=== PATIENT | female | born 1980 | race Caucasian/White ===

== ENCOUNTER 2016-03-20 14:04 | Emergency (ER) | payer BC ==
[2016-03-20 14:57] VITALS: RESP 16; TEMP 98.6
[2016-03-20] MEDS ORDERED: NS 1,000 ML IV ONE (15:22)
--- NOTE | 2016-03-20 15:25 | UCPHY ---
H & P Patient Type: New Chief Complaint Nursing Narrative: Pt. with sharp pain(x1 day) upon lying down, left breast. Slight sob(10 days. ),last noc achey left rib. states hx of A-fib but has not had s/s's of a-fib.Denies fever/chills or cough. Time Seen by Provider: 03/20/16 15:22 HPI/ROS: CHIEF COMPLAINT: CHEST PAIN HISTORY OF PRESENT ILLNESS: The patient is a 35-year-old female who comes to the Urgent Care complaining of left-sided pleuritic chest pain particularly when she lies flat in bed. She states that she has had mild shortness of breath for the last 10 days but did not have pain until last night. she has not had a fever. She has a history of intermittent atrial fibrillation but does not take any blood thinners. She states that it happens very infrequently and when it does she either takes metoprolol or some medication which stops at almost immediately. She also has a history of MTHF clotting disorder and is supposed to be on aspirin daily but has not been taking it regularly. She did receive heparin with her last without complication. She has not had any leg pain or swelling. She does not smoke. She did travel to [place] with a [address] last week. She has not had any recent procedures. No rashes. REVIEW OF SYSTEMS: Constitutional: denies: chills, fever, recent illness, recent injury EENTM: denies: blurred vision, double vision, nose congestion Respiratory: See HPI Cardiac: denies: chest pain, irregular heart rate, lightheadedness, palpitations Gastrointestinal/Abdominal: denies: abdominal pain, diarrhea, nausea, vomiting, blood streaked stools Genitourinary: denies: dysuria, frequency, hematuria, pain Musculoskeletal: denies: joint pain, muscle pain Skin: denies: lesions, rash, jaundice, bruising Neurological: denies: headache, numbness, paresthesia, tingling, dizziness, weakness Hematologic/Lymphatic: denies: blood clots, easy bleeding, easy bruising Immunologic/allergic: denies: HIV/AIDS, transplant EXAM: GENERAL: Well-appearing, well-nourished and in no acute distress. HEAD: Atraumatic, normocephalic. EYES: Pupils equal round and reactive to light, extraocular movements intact, sclera anicteric, conjunctiva are normal. ENT: TMs normal, nares patent, oropharynx clear without exudates. Moist mucous membranes. NECK: Normal range of motion, supple without lymphadenopathy or JVD. LUNGS: Breath sounds clear to auscultation bilaterally and equal. No wheezes rales or rhonchi. HEART: Regular rate and rhythm without murmurs, rubs or gallops. ABDOMEN: Soft, nontender, normoactive bowel sounds. No guarding, no rebound. No masses appreciated. BACK: No CVA tenderness, no spinal tenderness, step-offs or deformities EXTREMITIES: Normal range of motion, no pitting or edema. No clubbing or cyanosis. NEUROLOGICAL: Cranial nerves II through XII grossly intact. Normal speech, normal gait. 5/5 strength, normal movement in all extremities, normal sensation PSYCH: Normal mood, normal affect. SKIN: Warm, dry, normal turgor, no visible rashes or lesions. Source: Patient - Personal History LMP (Females 10-55): 8-14 Days Ago Current Tetanus Diphtheria and Acellular Pertussis (TDAP): Yes Tetanus Vaccine Date: 2015 - Medical/Surgical History Hx Asthma: No Hx Chronic Respiratory Disease: No Hx Diabetes: No Hx Cardiac Disease: No Hx Renal Disease: No Hx Cirrhosis: No Hx Alcoholism: No Hx HIV/AIDS: No Hx Splenectomy or Spleen Trauma: No Other PMH: Med hx-blood clotting disorder-MTHFR,A-fib. Surg-none - Family History Significant Family History: No pertinent family hx - Social History Smoking Status: Never smoked Alcohol Use: Sober Drug Use: None Constitutional: Initial Vital Signs Temperature (C) 37.0 C 03/20/16 14:05 Heart Rate 75 03/20/16 14:05 Respiratory Rate 16 03/20/16 14:05 Blood Pressure 113/60 03/20/16 14:05 O2 Sat (%) 98 03/20/16 14:05 O2 Delivery Mode Room Air Allergies/Adverse Reactions: No Known Allergies Allergy (Verified 03/20/16 14:48) Home Medications: Medication Instructions Recorded Apixaban [Eliquis] 10 mg PO BID #30 tab 03/20/16 Rivaroxaban [Xarelto 15mg (*)] 15 mg PO DAILY #30 tab 03/20/16 Medical Decision Making - Diagnostics EKG Interpretation: An EKG obtained and was read and documented in trace view. Please see trace view for full reading and report. Sinus rhythm, no acute ischemic changes or signs of right heart strain. Imaging: Results: CT scan of the chest angiogram was obtained. The results of the study are small lingular PE. The study was read by Dr. Deal. I viewed the images myself on the PACS system. ED Course/Re-evaluation: We discussed the CT results. I have spoken with Dr. Montaño who is contamination consultant for [facility]. He states that they tend to prescribed Eliquis. But also recommends giving her prescription for Xarelto in case her insurance prefers 1 over the other. He will have the grew follow up with her in the next day or 2. I instructed her to return here or to their office if she cannot get her prescription filled by tomorrow and needs another dose of Lovenox. Have given her a 1.5 milligram/kilogram dose of Lovenox here. She understands and agrees with this plan. Differential Diagnosis: Partial list of the Differential diagnosis considered include but were not limited to; PE, pneumonia, anxiety, arrhythmia and although unlikely based on the history and physical exam, I also considered acute coronary disease, pneumothorax, dissection. I discussed these differential diagnoses and the plan with the patient as well as the usual and expected course. The patient understands that the diagnosis is provisional and that in medicine we are not always correct and that further workup is often warranted. Usual and customary warnings were given. All of the patient's questions were answered. The patient was instructed to return to the emergency department should the symptoms at all worsen or return, otherwise to followup with the physician as we discussed. - Data Points Laboratory Results: Laboratory Results 03/20/16 15:35 03/20/16 15:35 03/20/16 15:35 WBC 6.36 10^3/uL (3.80-9.50) RBC 5.09 10^6/uL (4.18-5.33) Hgb 14.1 g/dL (12.6-16.3) Hct 41.8 % (38.0-47.0) MCV 82.1 fL (81.5-99.8) MCH 27.7 L pg (27.9-34.1) MCHC 33.7 g/dL (32.4-36.7) RDW 13.3 % (11.5-15.2) Plt Count 278 10^3/uL (150-400) MPV 9.3 fL (8.7-11.7) Neut % (Auto) 55.7 % (39.3-74.2) Lymph % (Auto) 28.6 % (15.0-45.0) [place] % (Auto) 9.7 % (4.5-13.0) Eos % (Auto) 4.1 % (0.6-7.6) Baso % (Auto) 1.3 % (0.3-1.7) Nucleat RBC Rel Count 0.0 % (0.0-0.2) Absolute Neuts (auto) 3.54 10^3/uL (1.70-6.50) Absolute Lymphs (auto) 1.82 10^3/uL (1.00-3.00) Absolute Monos (auto) 0.62 10^3/uL (0.30-0.80) Absolute Eos (auto) 0.26 10^3/uL (0.03-0.40) Absolute Basos (auto) 0.08 10^3/uL (0.02-0.10) Absolute Nucleated RBC 0.00 10^3/uL (0-0.01) Immature Gran % 0.6 % (0.0-1.1) Immature Gran # 0.04 10^3/uL (0.00-0.10) Sodium 141 mEq/L (134-144) Potassium 4.2 mEq/L (3.5-5.2) Chloride 103 mEq/L (97-110) Carbon Dioxide 27 mEq/l (22-31) Anion Gap 11 mEq/L (8-16) BUN 13 mg/dL (7-23) Creatinine 0.8 mg/dL (0.6-1.0) Estimated GFR > 60 Glucose 89 mg/dL (70-100) Calcium 9.4 mg/dL (8.5-10.4) Total Bilirubin 0.8 mg/dL (0.1-1.4) Conjugated Bilirubin 0.3 mg/dL (0.0-0.5) Unconjugated Bilirubin 0.5 mg/dL (0.0-1.1) AST 31 IU/L (14-46) ALT 39 IU/L (9-52) Alkaline Phosphatase 47 IU/L (38-126) Troponin I < 0.012 ng/mL (0-0.034) NT-Pro-B Natriuret Pep 68 pg/mL (0-125) Total Protein 7.5 g/dL (6.3-8.2) Albumin 4.2 g/dL (3.5-5.0) Lipase 217.0 IU/L (23-300) Beta HCG, Qual NEGATIVE Medications Given: Discontinued Medications Enoxaparin Sodium (Lovenox) 80 mg SC EDNOW ONE Stop: 03/20/16 17:07 Last Admin: 03/20/16 17:55 Dose: 80 mg Sodium Chloride (Ns) 1,000 mls @ 0 mls/hr IV ONCE ONE PRN Reason: Wide Open Stop: 03/20/16 15:23 Last Admin: 03/20/16 15:55 Dose: 1,000 mls Departure - Departure Disposition: Home, Routine, Self-Care Clinical Impression: Pulmonary embolism Qualifiers: Qualifier Code: (I26.99) Other pulmonary embolism without acute cor pulmonale Condition: Fair Instructions: Apixaban (By mouth), Blood Thinners (ED), Rivaroxaban (By mouth) Referrals: Gabby Flores, [facility] [Primary Care Provider] - As per Instructions Prescriptions: Apixaban [Eliquis] 10 mg PO BID #30 tab Rivaroxaban [Xarelto 15mg (*)] 15 mg PO DAILY #30 tab - PQRS PQRS Measurement: Not applicable
[2016-03-20] MEDS ORDERED: IOPAMIDOL (ISOVUE 370) 100 ML BTL IV ONE (15:27)
--- NOTE | 2016-03-20 15:28 | CPEKG ---
Heart Rate: 62 RR Interval: 968 P-R Interval: 128 QRSD Interval: 78 QT Interval: 444 QTC Interval: 451 P [place]: 54 QRS [place]: 62 T Wave [place]: 36 EKG Severity - NORMAL ECG - EKG Impression: SINUS RHYTHM Electronically Signed By: Jr David 20-Mar-2016 15:36:52
[2016-03-20 15:42] LABS: % IMMATURE GRANULYOCYTES 0.6 % (0.0-1.1); ABSOLUTE IMMATURE GRANULOCYTES 0.04 10^3/uL (0.00-0.10); ADD DIFF? NO; ADD MORPH? NO; ADD SCAN? NO; ATYPICAL LYMPHOCYTE FLAG 20 (0-99); FRAGMENT RBC FLAG 0 (0-99); HEMATOCRIT 41.8 % (38.0-47.0); HEMOGLOBIN 14.1 g/dL (12.6-16.3); LEFT SHIFT FLG 0 (0-99); LIPEMIA HEMOLYSIS FLAG 80 (0-99); MEAN CELL HEMOGLOBIN 27.7 pg (27.9-34.1); MEAN CELL HEMOGLOBIN CONCENTR. 33.7 g/dL (32.4-36.7); MEAN CELL VOLUME 82.1 fL (81.5-99.8); MEAN PLATELET VOLUME 9.3 fL (8.7-11.7); PLATELET CLUMPS FLAG 0 (0-99); PLATELET COUNT 278 10^3/uL (150-400); RED BLOOD CELL COUNT 5.09 10^6/uL (4.18-5.33); RED CELL DISTRIBUTION WIDTH 13.3 % (11.5-15.2)
[2016-03-20 16:00] LABS: ALANINE AMINOTRANSFERASE 39 IU/L (9-52); ALBUMIN 4.2 g/dL (3.5-5.0); ALKALINE PHOSPHATASE 47 IU/L (38-126); ANION GAP 11 mEq/L (8-16); ASPARTATE AMINOTRANSFERASE 31 IU/L (14-46); BILIRUBIN,TOTAL 0.8 mg/dL (0.1-1.4); BILIRUBIN-CONJUGATED 0.3 mg/dL (0.0-0.5); BILIRUBIN-UNCONJUGATED 0.5 mg/dL (0.0-1.1); CALCIUM 9.4 mg/dL (8.5-10.4); CARBON DIOXIDE 27 mEq/l (22-31); CHLORIDE 103 mEq/L (97-110); CREATININE 0.8 mg/dL (0.6-1.0); GLOMERULAR FILTRATION RATE > 60; GLUCOSE 89 mg/dL (70-100); POTASSIUM 4.2 mEq/L (3.5-5.2); SODIUM 141 mEq/L (134-144); TOTAL PROTEIN 7.5 g/dL (6.3-8.2)
[2016-03-20 16:11] LABS: TROPONIN I < 0.012 ng/mL (0-0.034)
--- NOTE | 2016-03-20 16:54 | CT ---
Chest CT With IV Contrast History: Left-sided chest pain, dyspnea, clotting disorder, atrial fibrillation. Technique: Ultrafast ultrathin [address] obtained through the chest after bolus administ ration of 85 mL of Isovue 370 nonionic contrast without complication. Soft tissue and bone window fan luation is performed. Dose reduction techniques were utilized. CT Chest: Findings: There is no evidence of pneumonia, pleural effusion, mass or pneumothorax. Heart size is normal and there is no pericardial effusion. There is no evidence for a left atrial or left atrial a ppendage thrombus. There is no left-sided rib fracture. CT Pulmonary Angiogram: Technique: Multiplanar and 3D reconstructions are reviewed on an independent 3D workstation. Findings: Possible small volume pulmonary embolus in the medial lingular segment. Otherwise no additi onal suggestion of pulmonary embolism. Right-sided heart chambers are not dilated and the interventri cular septum has normal morphology>]. Impression: Possibly small volume lingular embolism. Consider nuclear medicine perfusion scan for confirmation. Final results discussed with Dr. David and 4:50 p.m. General information for patients regarding this examination can be found at [email or web address]. If you have questions or comments about this report, please contact me at [phone] (hospital) or [phone] (cell).
[2016-03-20] MEDS ORDERED: ENOXAPARIN 80 MG/0.8 ML SYR SC ONE (17:06)
[2016-03-20 22:55] VITALS: BP 124/90; PULSE 63; O2SAT 99
== END 2016-03-20 18:10 | disposition home or self-care (01) ==
LOC: CED 14:04
DX: J98.4 Other disorders of lung (principal); D68.9 Coagulation defect, unspecified; I48.91 Unspecified atrial fibrillation
CPT/HCPCS: 71275-PO; 80048-PO; 80076-PO; 83690-PO; 83880-PO; 84484-PO; 84703-PO; 85025-PO; 93010-PO; 96360-PO; 96372-PO; 99205-PO; G0463-PO; J1650; Q9967

== ENCOUNTER → 2016-07-28 | Outpatient (CLI) | payer BC | LOC: CIMAGING 08:50 | PROVIDERS: ATTEND Internal Medicine Hematology & Oncology | DX: Z86.711 Personal history of pulmonary embolism (principal); E21.2 Other hyperparathyroidism | CPT/HCPCS: 93970-PO ==